=== PATIENT | female | born 1960 | race Caucasian/White ===

== ENCOUNTER → 2024-01-15 10:46 | Outpatient (REF) | payer OTHER, SELFPAY | LOC: RAD 10:46 | PROVIDERS: ATTENDING PHYSICIAN Allergy & Immunology; FAMILY PHYSICIAN Family Medicine | DX: R05.3 Chronic cough (principal); T78.3XXA Angioneurotic edema, initial encounter; J30.0 Vasomotor rhinitis | CPT/HCPCS: 71046 ==

== ENCOUNTER 2024-08-15 17:34 | Emergency (ER) | payer OTHER, SELFPAY ==
[2024-08-15 17:36] VITALS: BP 133/84
[2024-08-15 17:59] VITALS: BMI 34.3
[2024-08-15] MEDS: NSS 1000 IV (18:16)
[2024-08-15] MEDS: TORADOL 15 MG IM (18:17)
[2024-08-15] MEDS: ZOFRAN 4 MG IV (18:17)
[2024-08-15 18:19] VITALS: BP 161/74
[2024-08-15] MEDS: DILAUDID 0.5 MG IV (18:23)
[2024-08-15 18:25] LABS: % Basophils 0.5 % (0-2); % Eosinophils 0.7 % (0-6); % Immature Granulocytes 0.3 % (0-0.5); % Lymphocytes 14.9 % (20.5-51.1); % Monocytes 5.3 % (1.7-9.3); % Neutrophils 78.3 % (42.2-75.2); Absolute Eosinophils 0.1 10^3/uL (0-0.7); Absolute Lymphocytes 1.1 10^3/uL (1.2-3.4); Absolute Monocytes 0.4 10^3/uL (0.1-0.6); Absolute Neutrophils 5.8 10^3/uL (1.4-6.5); Hematocrit 38.5 % (37.0-47.0); Hemoglobin 13.4 g/dL (12.0-16.0); Mean Corp Hgb Conc. 34.8 g/dL (33.0-37.0); Mean Corpuscular Hgb 30.3 pg (27.0-31.0); Mean Corpuscular Volume 87.1 fL (81.0-99.0); Mean Platelet Volume 10.3 fL (7.4-10.4); Nucleated Red Blood Cells % 0 %; Platelet Count 295 10^3/uL (130-400); Red Blood Cell Count 4.42 10^6/uL (4.20-5.40); Red Cell Dist. Width 13.2 % (11.5-14.5); Urine Albumin Negative (Neg - Trace); Urine Bilirubin 2+ (Negative); Urine Character Slightly Cloudy (Clear); Urine Glucose Negative (Negative); Urine Ketone Negative (Negative); Urine Leukocyte Trace (Negative); Urine Nitrite Positive (Negative); Urine Occult Blood 3+ (Negative); Urine Specific Gravity 1.015 (<1.030); Urine Urobilinogen 2+ (Neg - 1+); White Blood Cell Count 7.4 10^3/uL (4.8-10.8)
--- NOTE | 2024-08-15 18:27 | ED.GENMED ---
History of Present Illness
General
Chief Complaint: Flank Pain
Source: patient
Exam Limitations: none
Time Seen by Provider: 08/15/24 17:53
Nursing documentation reviewed up to this point in time: agreed with
History of Present Illness
History of Present Illness:
Pleasant 64-year-old female who presents to the emergency department with right-sided flank pain. Patient went to urgent care earlier today and was diagnosed with hematuria. She states that the pain is colicky in nature and worsening. She states
that it wraps around to her abdomen. Denies fever, chills or nausea or vomiting. Patient is a smoker. She does have a history of sleep apnea, bowel obstruction, constipation, GERD, and hernia.
Past History
Past History
ED Past Medical History: None and Other (Remote history of Pancreatitis)
ED Past Surgical History:
Social History
Tobacco: Smoker
Alcohol: None
Drug: None
Living: with family
Employment: Employed
Family History
Family History: Other (Noncontributory)
Review of Systems
Review of Systems
Allergies reviewed?: Yes
Other source history: family
All Other Systems: Not applicable
Constitutional: Reports no symptoms
EENT: Reports no symptoms
Respiratory: Reports no symptoms
Cardiac: Reports no symptoms
ABD/GI: Reports no symptoms
: Reports flank pain and bleeding
Musculoskeletal: Reports no symptoms
Skin: Reports no symptoms
Neurological: Reports no symptoms
Endocrine: Reports no symptoms
Hematologic/Lymphatic: Reports no symptoms
Psychiatric: Reports anxiety
Phy Exam
General Physical Exam
General Presentation: well appearing and no apparent distress
General Skin: warm and dry
General Habitus: normal
General Mental: alert
General Hydration: appears well hydrated
ENT Exam
ENT Exam: EOMI, pharynx normal, neck supple and normocephalic
Eye Exam
Eye Exam: PERRL, cornea clear and conjunctiva normal
Cardiovascular Exam
Cardiovascular Exam: regular rate/rhythm, no edema, no murmur and normal peripheral pulses
Pulmonary Exam
Pulmonary Exam: lungs clear, no respiratory distress, no rales, no crackles, no rhonchi, no stridor, no wheezing and no cough
Gastrointestinal Exam
Gastrointestinal Exam: cva tenderness (Right)
Neurological Exam
Neurological Exam: alert, oriented x3, no motor deficits and speech normal
Musculoskeletal Exam
Musculoskeletal Exam: full ROM and no edema
Skin Exam
Skin Exam: normal color, warm/dry, no rash and no petechia
Psychiatric Exam
Psychiatric Exam: normal mood/affect
Course
Orders/Labs/Results
Orders:
Orders
08/15/24 17:54
CT Abd/pel Without Iv Or Oral Urgent
Comment:
Reason For Exam: right flank pain
0.9% Sodium Chloride 1000 ml [Nss] 1,000 ml IV BOLUS
Ketorolac [Toradol] 15 mg IM NOW STA
08/15/24 18:02
Ondansetron Injectable [Zofran] 4 mg .ROUTE .[facility] [[email or web address]MED [facility]
08/15/24 18:16
Complete Blood Count/With Diff Urgent
Comprehensive Metabolic Panel Urgent
Urinalysis Reflex To Culture Urgent
Date Specimen was Collected: 08/15/24
Time Specimen was Collected: 17:40
Urine Microscopic Reflex Cult Urgent
Urine Culture Urgent
NATE Source: U
Specimen Description:
Date Specimen was Collected: 08/15/24
Time Specimen was Collected: 17:40
08/15/24 18:17
Ondansetron Injectable [Zofran] 4 mg IV NOW STA
08/15/24 18:21
HYDROmorphone [Dilaudid] 0.5 mg IV NOW STA
08/15/24 20:14
CefTRIAXone [Rocephin] 2,000 mg IV NOW STA
Abnormal Lab Results
08/15/24
18:16
Absolute Lymphs (auto) 1.1 L 10^3/uL
(1.2-3.4)
Neutrophils % 78.3 H %
(42.2-75.2)
Lymphocytes % 14.9 L %
(20.5-51.1)
Glucose 125 H mg/dl
(70-99)
Alkaline Phosphatase 133 H U/L
(38-126)
Ur Occult Blood Reflex 3+ A
(Negative)
Urine Nitrite (Reflex) Positive A
(Negative)
Urine Bilirubin 2+ A
(Negative)
Urine Urobilinogen 2+ A
(Neg - 1+)
Leukocyte Esterase Rfl Trace A
(Negative)
Urine RBC 3-6 A /HPF
(0-2)
Urine Bacteria (Reflex) Few A
(Negative)
08/15/24 18:16
08/15/24 18:16
Vital Signs
Initial and Last Documented VS:
Initial Vital Signs
Temp Pulse Resp BP Pulse Ox
98.6 F 54 18 133/84 99
08/15/24 17:36 08/15/24 17:36 08/15/24 17:36 08/15/24 17:36 08/15/24 17:36
Last Documented Vital Signs
Temp Pulse Resp BP Pulse Ox
98.6 F 45 12 153/77 95
08/15/24 17:36 08/15/24 19:00 08/15/24 18:45 08/15/24 19:00 08/15/24 19:00
*Radiology
Radiology exam reviewed: radiology read reviewed (7 mm stone)
*Pulse Oximetry
Patient hypoxic: no
*Critical Care Note
Total Time (30-74mins, 75-104mins- exclusive of procedures): Not Applicable
Update Note
Update Note:
08/15/20242007 PM: Reviewed CT scan with patient. At this point she wishes to be discharged home.
IMPRESSION:
1. 7 mm stone at the right ureterovesicular junction, associated with mild to moderate right hydroureteronephrosis.
2. Additional intrarenal stones on each side as detailed above, nonobstructing.
3. Diffuse pancreatic calcification, suggestive of chronic pancreatitis. Significant progression compared to prior study dated 11/12/2019.
4. Left adrenal adenoma, unchanged.
08/15/20242019 PM spoke with Moises Iniguez, urology who recommended a dose of Rocephin prior to discharge. He will follow-up with her on Friday. She is to call the office.
ED Attending Note
-
Portions of this chart may have been created with voice recognition software.� Occasional wrong word or��sound alike� substitutions may have occurred due to the inherent limitations of voice recognition software.
Discharge Plan
Departure
Patient Disposition: Home (Routine Discharge)
Date of Disposition: 08/15/24
Time of Disposition: 20:20
Patient with high blood pressure during this ER visit?: Yes
Condition: Fair
Discharge Problem:
Kidney stone, UTI (urinary tract infection)
Instructions: Urinary tract infections in adults, Kidney Stones (DC), How to Strain Your Urine, BLOOD PRESSURE, Narcotic Pain Medication
Prescriptions:
New
oxycodone-acetaminophen [Percocet] 5-325 mg Tablet
1 tab PO Q4HPRN PRN (Reason: pain) Qty: 10 0RF
tamsulosin [Flomax] 0.4 mg Capsule
0.4 mg PO DAILY Qty: 7 0RF
cephalexin 500 mg capsule
500 mg PO BID 7 Days Qty: 14 0RF
diclofenac sodium 75 mg tablet,delayed release (DR/EC)
75 mg PO BID Qty: 10 0RF
No Action
oxycodone 5 MG tablet
5 mg PO Q4HPRN PRN (Reason: breakthrough/severe pain) Qty: 10 0RF
Referrals:
Jagdish Constantino, [Family Provider] -
Moises Edwards Jr., MD [Active] - Next open appointment (Please call the office tomorrow (Friday). Please tell the office staff that Dr. Edwards would like to see you on Friday.)
Activity Restrictions/Additional Instructions:
As discussed, please follow-up with Dr. Edwards. Call the office tomorrow and advise the office staff that he request an appointment for you on Friday.
Your prescriptions were sent electronically to the pharmacy that you specified.
It was a pleasure meeting you and taking part in your care. We hope for your continued healing and wellness.
Please read discharge instructions in their entirety. However, they are for general education and may not describe your exact diagnosis at discharge. Information on your ER visit and medical conditions were discussed with you along with appropriate
follow up information...
If indicated, please take your medications as instructed and indicated on discharge paperwork.
Please schedule a follow up appointment as directed. Call to schedule an appointment
Please return to the emergency department with ANY change in, persisting, or worsening of symptoms. If any of your symptoms do not improve, or persist, or become more severe within 6-12 hours, please return to the emergency department for further
care.
Please return to the emergency department if you develop a headache, neck pain/stiffness, fever greater than 100.4F, chest pain, shortness of breath, persistent nausea, vomiting, slurred speech, difficulty walking, numbness/tingling, weakness, signs
of infection or any other symptoms that are worrisome to you.
If you have any questions or concerns please do not hesitate to call the Hospital at or E-mail me directly at [email or web address]
Interventions
Interventions:
*Risk Screen - Suicide Last Done: 08/15/24 17:36
*General Assessment Last Done: 08/15/24 17:36
*Neglect/Abuse Screening Last Done: 08/15/24 17:36
ED- Fall Risk Assessment Last Done: 08/15/24 18:29
*ED COVID-19 Vaccine History Last Done: 08/15/24 18:21
KF-Hmfkse-Dywbpvlpqa Assessment Last Done: 08/15/24 18:24
ED-Female Genitourinary Assessment Last Done: 08/15/24 18:24
Discharge Date and Time
Print Language: CHINESE
[2024-08-15 18:38] LABS: ALT (SGPT) 18 U/L (0-35); AST (SGOT) 28 U/L (14-36); Albumin 4.3 g/dl (3.5-5.0); Alkaline Phosphatase 133 U/L (38-126); Blood Urea Nitrogen 12 mg/dl (7-17); Calcium 9.4 mg/dl (8.4-10.2); Carbon Dioxide 27 mmol/L (22-30); Chloride 104 mmol/L (98-107); Estimated Creatinine Clearance 72 ml/min; Glucose 125 mg/dl (70-99); Sodium 142 mmol/L (135-145); Total Bilirubin 0.4 mg/dl (0.2-1.3); Total Protein 7.4 g/dl (6.3-8.2); Urine Color Orange; eGFR > 60.00
[2024-08-15 18:55] LABS: Urine Bacteria Few (Negative)
[2024-08-15 19:00] VITALS: BP 153/77
[2024-08-15] MEDS: ROCEPHIN 2000 MG IV (20:34)
[2024-08-15] MEDS: PERCOCET 5/325 2 TABLET PO (20:43)
== END 2024-08-15 20:47 | disposition home or self-care (01) ==
LOC: EMR 17:34
PROVIDERS: Emergency Medicine; EMERGENCY PHYSICIAN Student in an Organized Health Care Education/Training Program; FAMILY PHYSICIAN Family Medicine
DX: N20.0 Calculus of kidney (principal); N39.0 Urinary tract infection, site not specified; F17.200 Nicotine dependence, unspecified, uncomplicated; G47.30 Sleep apnea, unspecified; K21.9 Gastro-esophageal reflux disease without esophagitis
CPT/HCPCS: 99284; 96374; 96375; 96372; 96361; 74176; 80053; 81003; 81015; 85025; 87086

== ENCOUNTER → 2024-11-30 12:55 | Outpatient (REF) | payer OTHER, SELFPAY | LOC: RAD 12:55 | PROVIDERS: ATTENDING PHYSICIAN Specialist; FAMILY PHYSICIAN Family Medicine | DX: R31.0 Gross hematuria (principal) | CPT/HCPCS: 74176 ==

== ENCOUNTER → 2025-01-28 13:12 | Outpatient (REF) | payer OTHER, SELFPAY | LOC: OIDL 13:12 | PROVIDERS: ATTENDING PHYSICIAN Internal Medicine Hematology & Oncology | DX: D47.2 Monoclonal gammopathy (principal) | CPT/HCPCS: 86850; 86900; 86901 ==

== ENCOUNTER → 2025-02-02 15:48 | Outpatient (REF) | payer OTHER, SELFPAY | LOC: RCS 15:48 | PROVIDERS: ATTENDING PHYSICIAN Internal Medicine Hematology & Oncology; FAMILY PHYSICIAN Family Medicine | DX: E85.4 Organ-limited amyloidosis (principal); D47.2 Monoclonal gammopathy; K14.9 Disease of tongue, unspecified | CPT/HCPCS: 93306 ==

== ENCOUNTER → 2025-02-14 13:10 | Outpatient (REF) | payer OTHER, SELFPAY ==
[2025-02-14 13:20] LABS: % Basophils 0.3 % (0-2); % Eosinophils 1.2 % (0-6); % Immature Granulocytes 0.3 % (0-0.5); % Monocytes 4.7 % (1.7-9.3); % Neutrophils 79.5 % (42.2-75.2); Absolute Eosinophils 0.1 10^3/uL (0-0.7); Absolute Lymphocytes 0.8 10^3/uL (1.2-3.4); Absolute Monocytes 0.3 10^3/uL (0.1-0.6); Absolute Neutrophils 4.7 10^3/uL (1.4-6.5); Hematocrit 36.1 % (37.0-47.0); Hemoglobin 12.2 g/dL (12.0-16.0); Mean Corp Hgb Conc. 33.8 g/dL (33.0-37.0); Mean Corpuscular Volume 91.9 fL (81.0-99.0); Mean Platelet Volume 10.6 fL (7.4-10.4); Nucleated Red Blood Cells % 0 %; Platelet Count 186 10^3/uL (130-400); Red Blood Cell Count 3.93 10^6/uL (4.20-5.40); Red Cell Dist. Width 14.2 % (11.5-14.5); White Blood Cell Count 5.9 10^3/uL (4.8-10.8)
== END ==
LOC: OIDL 13:10
PROVIDERS: ATTENDING PHYSICIAN Internal Medicine Hematology & Oncology
DX: D47.2 Monoclonal gammopathy (principal); K14.9 Disease of tongue, unspecified; E85.4 Organ-limited amyloidosis
CPT/HCPCS: 85025

== ENCOUNTER → 2025-08-12 06:57 | Outpatient (REF) | payer OTHER, SELFPAY ==
[2025-08-12] VITALS (9 sets, daily range): BP systolic 58–142; BP diastolic 63–78
[2025-08-12 07:19] LABS: Hematocrit 37.3 % (37.0-47.0); Hemoglobin 12.7 g/dL (12.0-16.0); Mean Corp Hgb Conc. 34.0 g/dL (33.0-37.0); Mean Corpuscular Volume 90.8 fL (81.0-99.0); Nucleated Red Blood Cells % 0 %; Platelet Count 192 10^3/uL (130-400); Red Cell Dist. Width 13.2 % (11.5-14.5)
[2025-08-12 07:46] LABS: INR 1.01; PT 13.8 Sec (11.4-14.6)
[2025-08-12] MEDS: ATIVAN 0.5 MG PO (07:52)
== END ==
LOC: RADI 06:57
PROVIDERS: ATTENDING PHYSICIAN Internal Medicine Hematology & Oncology; FAMILY PHYSICIAN Family Medicine
DX: D47.2 Monoclonal gammopathy (principal); C02.9 Malignant neoplasm of tongue, unspecified; E85.4 Organ-limited amyloidosis
CPT/HCPCS: 36415; 38222; 77012; 85025; 85610; 88305; 88311; 88312; 88313

== ENCOUNTER → 2025-08-29 07:09 | Outpatient (REF) | payer MEDICARE, OTHER, SELFPAY ==
[2025-08-29] VITALS (8 sets, daily range): BP systolic 57–136; BP diastolic 55–118
[2025-08-29] MEDS: ANCEF 10 IV (08:20)
== END ==
LOC: RADI 07:09
PROVIDERS: ATTENDING PHYSICIAN Internal Medicine Hematology & Oncology; FAMILY PHYSICIAN Family Medicine
DX: D47.2 Monoclonal gammopathy (principal)
CPT/HCPCS: 36561; 76937; 77001; 99152; 99153; C1788